=== PATIENT | female | born 1955 | race Caucasian/White ===

== ENCOUNTER 2018-06-27 16:32 | Emergency (ER) | payer OTHER ==
[~2018-06-27] VITALS: Ht 170.2 cm; Wt 86.4 kg
--- NOTE | 2018-06-27 16:59 | ERD ---
ER Documentation Chief Complaint Chief Complaint HPI 63-year old woman brought in by EMS from home for bilateral carpopedal spasming beginning about 3 hours prior to arrival. Patient describes pain and muscle cramping to the feet and ankles and hands. She attributes her pain to osteoarthritis of the feet and states the symptoms occur regularly multiple times per year. She has been using acetaminophen at home without relief. She denies fevers or chills, no chest pain or shortness of breath, no nausea or vomiting. Patient was transported here anxious ROS All systems reviewed and are negative except as per history of present illness. Medications Home Meds Active Scripts Capsaicin (Capsaicin) 42.5 Gm Cream.gm., 1 APPLIC TOP TID PRN for PAIN, #1 TUB Prov:SHAKIRA CASTAÑEDA MD 06/27/18 Oxycodone HCl/Acetaminophen (Percocet 5-325 mg Tablet) 1 Each Tablet, 1 EACH PO TID PRN for PAIN LEVEL 6-10, #12 TAB Prov:SHAKIRA CASTAÑEDA MD 06/27/18 FmHx Family History: No diabetes Physical Exam Vitals Vital Signs Date Temp Pulse Resp B/P (MAP) Pulse Ox O2 O2 Flow FiO2 Time Delivery Rate 06/27/18 97.9 88 20 130/71 100 Room Air 18:53 (90) 06/27/18 88 20 132/68 100 Room Air 18:04 (89) 06/27/18 97.9 75 20 128/68 100 17:04 (88) Per nurse's records Physical Exam GENERAL: Well-developed, well-nourished, anxious, afebrile, hyperventilating HEENT: Moist mucous membranes, pink conjunctiva, no cervical spine tenderness or step-off deformities, no goiter, no jaundice or icterus, extraocular movements intact without pain. No submandibular induration, and no pharyngeal erythema NEURO: Alert and oriented 3, cranial nerves II through XII intact bilaterally, pupils equal round reactive to light, no focal deficits or facial asymmetry, sensation intact distally Strength 5/5 in upper and lower extremities bilaterally CARDIAC: Regular rate and rhythm, no murmurs rubs or gallops LUNGS: Clear bilaterally no wheezing crackles or stridor ABDOMEN: Soft nontender, no guarding, no rigidity, no rebound, no psoas sign no obturator sign. Normoactive bowel sounds SKIN: Warm and dry to touch, no abrasions, contusions, or hematomas, no lacerations, no ecchymosis, no target lesions, and without ulcers EXTREMITIES: No clubbing cyanosis or edema, calves are bilaterally symmetrical, osteoarthritic changes noted to the toes, bilateral hallux valgus deformity, distal pulses equal and bilateral. Mild carpal spasms bilaterally PSYCH: Anxious Results 24 hrs Current Medications Medications Dose Sig/Yudy Start Time Status Last (Trade) Ordered Route PRN Stop Time Admin Dose Reason Admin Lorazepam 1 mg ONCE ONCE 06/27/18 DC 06/27/18 (Ativan) IM 17:00 17:01 06/27/18 17:01 Oxycodone/ 1 tab ONCE ONCE 06/27/18 DC 06/27/18 Acetaminophen PO 17:00 17:01 (Percocet 06/27/18 17:01 (5/ 325)) 2 mg ONCE STAT 06/27/18 DC 06/27/18 Hydromorphone IM 18:05 18:11 HCl 06/27/18 18:06 (Dilaudid) Procedures/MDM I administered lorazepam 1 mg IM x1 and Percocet 1 tablet p.o. For continued pain administered hydromorphone 2 mg IM x1. Patient's anxiety and muscle spasm and pain resolved completely, vital signs remained normal and she will be discharged to follow-up with PMD. Patient feels much better at this time, and vital signs are normal, symptoms have improved. I did give strict instructions to return to the ED if symptoms continue or worsen, patient will otherwise follow-up with primary care physician. Patient understood instructions and agreed to plan. Disclaimer: Inadvertent spelling and grammatical errors are likely due to EHR/dictation software use and do not reflect on the overall quality of patient care. Also, please note that the electronic time recorded on this note does not necessarily reflect the actual time of the patient encounter. Departure Diagnosis: Primary Impression: Hyperventilation syndrome Additional Impressions: Carpopedal spasm Osteoarthritis Osteoarthritis location: foot Osteoarthritis type: primary Laterality: bilateral Qualified Codes: M19.071 - Primary osteoarthritis, right ankle and foot; M19.072 - Primary osteoarthritis, left ankle and foot Condition: Good SHAKIRA CASTAÑEDA MD Jun 27, 2018 16:59
[2018-06-27] MEDS ORDERED: LORAZEPAM 2 MG INJ IM ONE (17:00)
[2018-06-27] MEDS ORDERED: OXYCODONE/ACETAMINOPHEN (5/325) TAB PO ONE (17:00)
[2018-06-27 17:04] VITALS: Ht 170.2 cm; Wt 86.4 kg
[2018-06-27] MEDS ORDERED: HYDROmorphONE 2 MG/ML SYG IM STA (18:05)
[2018-06-27] MEDS ORDERED: CAPS42.510 TOP (18:34)
[2018-06-27] MEDS ORDERED: OXYC-279 PO (18:34)
[2018-06-27 18:53] VITALS: BP 130/71; PULSE 88; RESP 20
== END 2018-06-27 18:54 | disposition home or self-care (01) ==
LOC: E/R 16:32
DX: M19.072 Primary osteoarthritis, left ankle and foot (principal); M19.071 Primary osteoarthritis, right ankle and foot; F45.8 Other somatoform disorders
CPT/HCPCS: 96372; J1170; J2060; Z7502; Z7610